=== PATIENT | female | born 1990 ===

== ENCOUNTER 2023-10-21 15:04 | Outpatient (RCR) | payer OTHER, SELFPAY | END 2023-10-21 23:59 | disposition home or self-care (01) | LOC: RPT 15:04 | PROVIDERS: ATTENDING PHYSICIAN Physical Medicine & Rehabilitation Sports Medicine; PRIMARYCARE PHYSICIAN Family Medicine | DX: G54.0 Brachial plexus disorders (principal); M79.2 Neuralgia and neuritis, unspecified; M62.89 Other specified disorders of muscle; M54.2 Cervicalgia; R39.9 Unspecified symptoms and signs involving the genitourinary system; G44.209 Tension-type headache, unspecified, not intractable; Z73.6 Limitation of activities due to disability | CPT/HCPCS: 97110; 97140; 97163; 97530 ==

== ENCOUNTER 2024-02-10 16:06 | Outpatient (RCR) | payer SELFPAY | END 2024-02-10 23:59 | disposition home or self-care (01) | LOC: RPT 16:06 | PROVIDERS: ATTENDING PHYSICIAN Physical Medicine & Rehabilitation Sports Medicine; PRIMARYCARE PHYSICIAN Family Medicine | DX: G54.0 Brachial plexus disorders (principal); M79.2 Neuralgia and neuritis, unspecified; M62.89 Other specified disorders of muscle; M54.2 Cervicalgia; R39.9 Unspecified symptoms and signs involving the genitourinary system; G44.209 Tension-type headache, unspecified, not intractable; Z73.6 Limitation of activities due to disability | CPT/HCPCS: 97110; 97161 ==